=== PATIENT | female | born 1950 | race Native Hawaiian/Other Pacific Islander ===

== ENCOUNTER 2017-11-23 08:12 | Day surgery (SDC) | payer OTHER, MEDICARE | END 2017-11-23 10:10 | disposition home or self-care (01) | LOC: OR 08:12 | PROC: 08RK3JZ Replacement of Left Lens with Synthetic Substitute, Percutaneous Approach (ICD-10-PCS; principal; 2017-11-23) | DX: H25.812 Combined forms of age-related cataract, left eye (principal) | CPT/HCPCS: 66984; J0171; V2632 ==

== ENCOUNTER 2017-12-28 09:14 | Day surgery (SDC) | payer OTHER, MEDICARE | END 2017-12-28 12:05 | disposition home or self-care (01) | LOC: OR 09:14 | PROC: 08RJ3JZ Replacement of Right Lens with Synthetic Substitute, Percutaneous Approach (ICD-10-PCS; principal; 2017-12-28) | DX: H25.811 Combined forms of age-related cataract, right eye (principal) | CPT/HCPCS: 66984; V2632 ==